=== PATIENT | female | born 1990 | race Caucasian/White ===

== ENCOUNTER 2021-07-26 07:16 | Day surgery (SDC) | payer BC ==
[~2021-07-26 07:16] MED LIST: Lactated Ringers 1,000 ML IV SCH; Lidocaine 1%/Sod Bicarbonate in NS 8.4% 1 ML Syringe IDERM PRN; Sodium Chloride 0.9% 10 ML Syringe FLUSH PRN; Sodium Chloride 0.9% 10 ML Syringe FLUSH SCH
[2021-07-26] MEDS ORDERED: Sodium Chloride 0.9% 50 ML SDV ONE (07:39)
[2021-07-26] MEDS ORDERED: Lidocaine 1% with EPINEPHrine 1:100,000 20 ML MDV ONE (07:39)
[2021-07-26 07:57] LABS: ESTIMATED GFR > 60 mL/min (>60)
[2021-07-26] MEDS ORDERED: Lactated Ringers 1,000 ML ONE (08:19)
[2021-07-26] MEDS ORDERED: Propofol 200 MG/20 ML SDV ONE (08:19)
[2021-07-26] MEDS ORDERED: ceFAZolin 1 GM Vial ONE (08:19)
[2021-07-26] MEDS ORDERED: fentaNYL 250 MCG/5 ML SDV ONE (08:19)
[2021-07-26] MEDS ORDERED: Midazolam 1 MG/ML 2 ML SDV ONE (08:19)
[2021-07-26] MEDS ORDERED: Lidocaine 1% 4 ML ONE (08:19)
[2021-07-26] MEDS ORDERED: Rocuronium 50 MG/5 ML Vial ONE (08:19)
[2021-07-26] MEDS ORDERED: Ketorolac 30 MG/ML SDV ONE (09:41)
[2021-07-26] MEDS ORDERED: Dexamethasone 4 MG/ML 5 ML MDV ONE (09:41)
[2021-07-26] MEDS ORDERED: Ondansetron 4 MG/2 ML SDV ONE (09:41)
[2021-07-26] MEDS ORDERED: Neostigmine Methylsulfate 10 MG/10 ML MDV ONE (10:02)
[2021-07-26] MEDS ORDERED: fentaNYL 100 MCG/2 ML SDV IVPUSH PRN (10:05)
[2021-07-26] MEDS ORDERED: HYDROmorphone 0.5 MG/0.5 ML Syringe IVPUSH PRN (10:05)
[2021-07-26] MEDS ORDERED: Ondansetron 4 MG/2 ML SDV IVPUSH PRN ×2 (10:05→10:26)
[2021-07-26] MEDS ORDERED: Acetaminophen/oxyCODONE 325-5 MG Tab PO PRN (10:26)
[2021-07-26] MEDS ORDERED: Ketorolac 30 MG/ML SDV IVPUSH SCH (10:30)
[2021-07-26] MEDS ORDERED: Acetaminophen/oxyCODONE 325-5 MG Tab PO ONE (10:49)
[2021-07-26] MEDS ORDERED: Ibuprofen 600 MG Tab PO PRN (18:00)
== END 2021-07-26 13:25 | disposition home or self-care (01) ==
LOC: JD.SDS 07:16
PROVIDERS: ATTEND Obstetrics & Gynecology
DX: D25.9 Leiomyoma of uterus, unspecified (principal); N72 Inflammatory disease of cervix uteri; N87.9 Dysplasia of cervix uteri, unspecified; F41.9 Anxiety disorder, unspecified; N83.8 Other noninflammatory disorders of ovary, fallopian tube and broad ligament; Z79.899 Other long term (current) drug therapy; Z98.890 Other specified postprocedural states
CPT/HCPCS: 36415; 58262; 81003; 81025; 82565; 85025; 86850; 86900; 86901; A9270; J0690; J1100; J1885; J2250; J2405; J2704; J2710; J3010; J7120; 00940